=== PATIENT | male | born 1965 | race Caucasian/White ===

== ENCOUNTER 2016-03-24 23:19 | Emergency (ER) | payer OTHER ==
[~2016-03-24] VITALS: Ht 162.6 cm; Wt 82.0 kg
[~2016-03-24 23:19] MED LIST: ACET-2047; ACET650S13; BISM262O23 PO; CHLO25CA; CIPR500T4 PO; CLON-379; FOLI-49; LORA2VIA3; MULT1TAB59; OMEP20CA16 PO; ONDA4AMP; ONDA4TAB35 PO; POTA20IV; [UNRECOGNIZED DRUG - CODE]
[2016-03-24 23:26] VITALS: Ht 162.6 cm; Wt 82.0 kg
[2016-03-25] MEDS ORDERED: morphine 4 MG/ML VIAL IV STA (00:59)
[2016-03-25] MEDS ORDERED: LIDOCAINE/MYLANTA 40 ML BTL PO STA (00:59)
[2016-03-25] MEDS ORDERED: SOD CHLORIDE 0.9% 500 ML IV STA (00:59)
[2016-03-25] MEDS ORDERED: FAMOTIDINE 20 MG INJ IV STA (00:59)
[2016-03-25] MEDS ORDERED: ONDANSETRON 4 MG INJ IV STA (00:59)
[2016-03-25 01:22] LABS: BASOPHIL # 0.1 10^3/ul (0.0-0.1); BASOPHILS % 0.5 % (0.0-2.0); EOSINOPHILS # 0.2 10^3/ul (0.0-0.5); EOSINOPHILS % 1.8 % (0.0-7.0); HEMATOCRIT 48.5 % (42.0-52.0); HEMOGLOBIN 16.7 g/dl (14.0-18.0); LYMPHOCYTES # 2.6 10^3/ul (0.8-2.9); MEAN CORPUSCULAR HEMOGLOBIN 33.9 pg (29.0-33.0); MEAN CORPUSCULAR HGB CONC 34.4 g/dl (32.0-37.0); MEAN CORPUSCULAR VOLUME 98.4 fl (82.0-101.0); MEAN PLATELET VOLUME 7.9 fl (7.4-10.4); MONOCYTE # 0.7 10^3/ul (0.3-0.9); MONOCYTES % 6.7 % (0.0-11.0); NEUTROPHIL # 6.9 10^3/ul (1.6-7.5); PLATELET COUNT 251 10^3/UL (140-440); RED BLOOD COUNT 4.93 10^6/ul (4.70-6.10); RED CELL DISTRIBUTION WIDTH 13.3 % (11.5-14.5); UNCORRECTED WBC 10.4 10^3/ul (4.8-10.8); WHITE BLOOD COUNT 10.4 10^3/ul (4.8-10.8)
[2016-03-25 01:23] LABS: CONDITION 1
--- NOTE | 2016-03-25 01:29 | RADRPT ---
PROCEDURE: Chest. CLINICAL INDICATION: Chest pain. TECHNIQUE: Single frontal view of the chest was obtained. COMPARISON: None. FINDINGS: The cardiac silhouette is within normal limits. The aortic arch is unremarkable. There is no focal consolidation, vascular congestion or pleural effusion. There is no pneumothorax. IMPRESSION: No evidence for active cardiopulmonary disease. .Demetrius Frank MD, MD Date Time Electronically viewed and signed by .Demetrius Frank MD, on 03/25/2016 01:29 .T/
[2016-03-25 01:30] LABS: ALBUMIN 4.6 g/dl (3.3-4.9); CHLORIDE 101 mmol/L (97-110); POTASSIUM 3.8 mmol/L (3.5-5.1); SODIUM 144 mmol/L (135-144)
[2016-03-25 01:32] LABS: CREATININE 0.81 mg/dl (0.61-1.24)
[2016-03-25 01:33] LABS: ALANINE AMINOTRANSFERASE 49 IU/L (13-69); ALBUMIN/GLOBULIN RATIO 1.31; ALKALINE PHOSPHATASE 112 IU/L (42-121); ANION GAP 19 (8-16); ASPARTATE AMINO TRANSFERASE 73 IU/L (15-46); BILIRUBIN,INDIRECT 0.3 mg/dl (0-1.1); BILIRUBIN,TOTAL 0.3 mg/dl (0.2-1.3); BLOOD UREA NITROGEN 11 mg/dl (7-20); CALCIUM 9.3 mg/dl (8.4-10.2); CARBON DIOXIDE 28 mmol/L (21-31); GLUCOSE 110 mg/dl (70-220); TOTAL PROTEIN 8.1 g/dl (6.1-8.1)
[2016-03-25 01:43] LABS: ADD UMIC YES; URINE BILIRUBIN (Dip) NEGATIVE (NEGATIVE); URINE BLOOD (Dip) TRACE (NEGATIVE); URINE COLOR LT. YELLOW (YELLOW); URINE GLUCOSE (Dip) NEGATIVE (NEGATIVE); URINE KETONES (Dip) NEGATIVE (NEGATIVE); URINE LEUKOCYTE ESTERASE (Dip) NEGATIVE (NEGATIVE); URINE NITRITE (Dip) NEGATIVE (NEGATIVE); URINE TOTAL PROTEIN (Dip) 1+ (NEGATIVE); URINE UROBILINOGEN (Dip) 0.2 E.U./dL (0.1-1.0)
[2016-03-25 01:58] LABS: TROPONIN-I < 0.012 ng/ml (0.00-0.12)
[2016-03-25 02:43] LABS: URINE RBCS 0-2 /HPF (0)
[2016-03-25] MEDS ORDERED: RANI150T9 PO (03:07)
[2016-03-25] MEDS ORDERED: ONDA4TAB14 PO (03:07)
--- NOTE | 2016-03-25 03:07 | ERD ---
ER Documentation Chief Complaint Date/Time DATE: 03/25/16 TIME: 03:04 Chief Complaint epigastric sharp pain radiating to the back HPI This is a 50-year-old gentleman with epigastric abdominal pain radiating to his back with some mild abdominal distention. Pain is been going on for 2 days. Pain is mild to moderate intensity. It is burning in sensation. Denies any fevers or chills. Denies any other current complaints. Mild nausea but no vomiting. ROS All systems reviewed and are negative except as per history of present illness. Medications Home Meds Active Scripts Omeprazole* (Omeprazole*) 20 Mg Capsule.dr, 20 MG PO BID for 15 Days, #30 CAP 0 Refills Prov:JUSTINO SAWYER PA-C 08/06/15 Ondansetron Hcl* (Zofran* ODT) 4 mg -ODT Tab.disper, 4 MG PO DAILY Y for NAUSEA AND OR VOMITING for 5 Days, #5 TAB 0 Refills Prov:JUSTINO SAWYER PA-C 08/06/15 Bismuth Subsalicylate* (Pepto-Bismol*) 262 Mg/15 Ml Oral.susp, 30 ML PO Q6H Y for PAIN for 2 Days, #240 ML 0 Refills Prov:JUSTINO SAWYER PA-C 08/06/15 Ciprofloxacin Hcl* (Ciprofloxacin Hcl*) 500 Mg Tablet, 500 MG PO BID for 10 Days , #20 TAB 0 Refills Prov:JUSTINO SAWYER PA-C 08/06/15 Reported Medications Clonidine Hcl* (Clonidine Hcl*) 0.1 Mg Tab 06/02/10 Folic Acid* (Folic Acid*) 1 Mg Tablet 06/02/10 Thiamine Hcl (Vitamin B-1) 100 Mg Tablet 06/02/10 Multivitamins* (Multivitamins*) 1 Tab Tablet 06/02/10 Chlordiazepoxide* (Librium*) 25 Mg Capsule 06/02/10 Lorazepam* (Ativan* IV) 2 Mg/Ml Vial 06/02/10 Acetaminophen* (Acetaminophen* Supp) 650 Mg/Supp.rect Supp.rect 06/02/10 Acetaminophen* (Acetaminophen*) 650 Mg Tablet 06/02/10 Ondansetron Hcl* (Ondansetron Hcl* Inj) 4 Mg/2 Ml Ampul 06/02/10 Kcl/Dextrose/Sod Chloride* ([id number] 20 Meq/L IV Soln*) 20 Meq/L Iv.soln 06/02/10 [None] No Conflict Check 05/30/10 Allergies Allergies: Coded Allergies: No Known Allergy (Verified Allergy, Unknown, 06/07/10) PMhx/Soc Medical and Surgical Hx: pt denies Surgical Hx History of Surgery: No Anesthesia Reaction: No Hx Neurological Disorder: No Hx Respiratory Disorders: No Hx Cardiac Disorders: Yes (HTN) Hx Psychiatric Problems: No Hx Miscellaneous Medical Probl: Yes (ANXIETY) Hx Alcohol Use: No (LAST INTAKE 05/30/10) Hx Substance Use: No Hx Tobacco Use: No Smoking Status: Unknown if ever smoked Physical Exam Vitals Vital Signs Date Time Temp Pulse Resp B/P Pulse Ox O2 Delivery O2 Flow Rate FiO2 03/24/16 23:26 97.7 56 18 172/98 97 Physical Exam Const: [] Head: Atraumatic Eyes: Normal Conjunctiva ENT: Normal External Ears, Nose and Mouth. Neck: Full range of motion..~ No meningismus. Resp: Clear to auscultation bilaterally Cardio: Regular rate and rhythm, no murmurs Abd: Soft, non tender, non distended. Normal bowel sounds Skin: No petechiae or rashes Back: No midline or flank tenderness Ext: No cyanosis, or edema Neur: Awake and alert Psych: Normal Mood and Affect Result Diagram: 03/25/169903/25/16 0100 Results 24 hrs Laboratory Tests Test 03/25/16 01:00 03/25/16 01:20 Alanine Aminotransferase (ALT/SGPT) 49IU/L Albumin 4.6g/dl Albumin/Globulin Ratio 1.31 Alkaline Phosphatase 112IU/L Anion Gap 19 Aspartate Amino Transf (AST/SGOT) 73IU/L Basophils # 0.110^3/ul Basophils % 0.5% Blood Urea Nitrogen 11mg/dl Calcium Level 9.3mg/dl Carbon Dioxide Level 28mmol/L Chloride Level 101mmol/L Creatinine 0.81mg/dl Direct Bilirubin 0.00mg/dl Eosinophils # 0.210^3/ul Eosinophils % 1.8% Globulin 3.50g/dl Glucose Level 110mg/dl Hematocrit 48.5% Hemoglobin 16.7g/dl Indirect Bilirubin 0.3mg/dl Lipase 158U/L Lymphocytes # 2.610^3/ul Lymphocytes % 25.0% Mean Corpuscular Hemoglobin 33.9pg Mean Corpuscular Hemoglobin Concent 34.4g/dl Mean Corpuscular Volume 98.4fl Mean Platelet Volume 7.9fl Monocytes # 0.710^3/ul Monocytes % 6.7% Neutrophils # 6.910^3/ul Neutrophils % 66.0% Nucleated Red Blood Cells # 0.010^3/ul Nucleated Red Blood Cells % 0.0/100WBC Platelet Count 94554^3/UL Potassium Level 3.8mmol/L Red Blood Count 4.9310^6/ul Red Cell Distribution Width 13.3% Sodium Level 144mmol/L Total Bilirubin 0.3mg/dl Total Protein 8.1g/dl Troponin I < 0.012ng/ml White Blood Count 10.410^3/ul Urine Bilirubin NEGATIVE Urine Clarity CLEAR Urine Color LT. YELLOW Urine Glucose NEGATIVE% Urine Hemoglobin TRACE Urine Ketones NEGATIVE Urine Leukocyte Esterase NEGATIVE Urine Microscopic RBC 0-2/HPF Urine Microscopic WBC NONE SEEN/HPF Urine Nitrite NEGATIVE Urine Specific [place] >=1.030 Urine Total Protein 1+ Urine Urobilinogen 0.2 E.U./dL Urine pH 5.5 Current Medications Medications (Trade) Dose Ordered Sig/Tha Route PRN Reason Start Time Stop Time Status Last Admin Dose Admin Sodium Chloride (NS) 500 ml @ 500 mls/hr Q1H STAT IV 03/25/16 00:59 03/25/16 01:58 DC 03/25/16 01:13 Morphine Sulfate (morphine) 4 mg ONCE STAT IV 03/25/16 00:59 03/25/16 01:01 DC 03/25/16 01:14 Ondansetron HCl (Zofran Inj) 4 mg ONCE STAT IV 03/25/16 00:59 03/25/16 01:01 DC 03/25/16 01:13 Famotidine (Pepcid Iv) 20 mg ONCE STAT IV 03/25/16 00:59 03/25/16 01:01 DC 03/25/16 01:13 Miscellaneous Medication (Gi Cocktail (2)) 40 ml ONCE STAT PO 03/25/16 00:59 03/25/16 01:02 DC 03/25/16 01:13 Departure Diagnosis: Primary Impression: Abdominal pain Abdominal location: epigastric Qualified Code: R10.13 - Epigastric pain Condition: Stable SIDDHARTHA MYLES Mar 25, 2016 03:07
[2016-03-25 03:20] VITALS: BP 140/91; PULSE 71; RESP 18
== END 2016-03-25 03:22 | disposition home or self-care (01) ==
LOC: E/R 23:19
DX: R10.13 Epigastric pain (principal); I10 Essential (primary) hypertension; R11.0 Nausea
CPT/HCPCS: 36415; 71010; 80053; 81001; 83690; 84484; 85025; 93005; 96374; 96375; J2270; J2405; J7040; Z7502; Z7610; 81003

== ENCOUNTER 2016-03-28 02:48 | Emergency (ER) | payer OTHER ==
[~2016-03-28] VITALS: Ht 172.7 cm; Wt 83.0 kg
[~2016-03-28 02:48] MED LIST changes: +ONDA4TAB14 PO; +RANI150T9 PO
[2016-03-28 02:52] VITALS: Ht 172.7 cm; Wt 83.0 kg
[2016-03-28] MEDS ORDERED: ONDANSETRON 4 MG INJ IV STA (03:11)
[2016-03-28] MEDS ORDERED: FAMOTIDINE 20 MG INJ IV STA (03:11)
[2016-03-28] MEDS ORDERED: SOD CHLORIDE 0.9% 1,000 ML IV STA (03:11)
[2016-03-28] MEDS ORDERED: morphine 2 MG INJ IV STA (03:11)
[2016-03-28 04:11] LABS: BASOPHILS % 0.4 % (0.0-2.0); EOSINOPHILS # 0.2 10^3/ul (0.0-0.5); EOSINOPHILS % 2.9 % (0.0-7.0); HEMATOCRIT 47.5 % (42.0-52.0); HEMOGLOBIN 16.4 g/dl (14.0-18.0); LYMPHOCYTES # 1.8 10^3/ul (0.8-2.9); LYMPHOCYTES % 23.9 % (15.0-51.0); MEAN CORPUSCULAR HEMOGLOBIN 33.9 pg (29.0-33.0); MEAN CORPUSCULAR HGB CONC 34.4 g/dl (32.0-37.0); MEAN CORPUSCULAR VOLUME 98.4 fl (82.0-101.0); MEAN PLATELET VOLUME 8.4 fl (7.4-10.4); MONOCYTE # 0.6 10^3/ul (0.3-0.9); MONOCYTES % 7.9 % (0.0-11.0); NEUTROPHIL # 4.9 10^3/ul (1.6-7.5); NEUTROPHILS % 64.9 % (39.0-77.0); PLATELET COUNT 241 10^3/UL (140-440); RED BLOOD COUNT 4.83 10^6/ul (4.70-6.10); UNCORRECTED WBC 7.6 10^3/ul (4.8-10.8); WHITE BLOOD COUNT 7.6 10^3/ul (4.8-10.8)
[2016-03-28 04:12] LABS: CONDITION 1
[2016-03-28 04:14] LABS: ALBUMIN 4.4 g/dl (3.3-4.9)
[2016-03-28 04:15] LABS: POTASSIUM 3.5 mmol/L (3.5-5.1)
[2016-03-28 04:17] LABS: ALBUMIN/GLOBULIN RATIO 1.33; BILIRUBIN,INDIRECT 0.3 mg/dl (0-1.1); BILIRUBIN,TOTAL 0.3 mg/dl (0.2-1.3); CREATININE 0.87 mg/dl (0.61-1.24); TOTAL PROTEIN 7.7 g/dl (6.1-8.1)
[2016-03-28 04:18] LABS: CALCIUM 9.2 mg/dl (8.4-10.2)
[2016-03-28] MEDS ORDERED: LIDOCAINE/MYLANTA 40 ML BTL PO ONE (04:33)
--- NOTE | 2016-03-28 04:39 | RADRPT ---
PROCEDURE: Ultrasound of the abdomen. CLINICAL INDICATION: Right upper quadrant pain. TECHNIQUE: Sonographic images of the abdomen were performed. COMPARISON: No pertinent prior examinations were submitted for comparison. FINDINGS: Liver: The liver is normal in echogencity and size measuring approximately 15.4 cm. The hepatic vei ns and portal veins are patent with appropriate directional flow. No intrahepatic ductal dilatation is seen. Gallbladder: The gallbladder is mildly distended. There is diffuse gallbladder wall thickening. No pericholecystic fluid or gallstones are visualized. The common duct measures 4.2 mm. Pancreas: There is limited evaluation of the pancreatic body and tail. The visualized portions of the pancreas are unremarkable. Kidneys: The right kidney measures 10.5 cm. There is normal corticomedullary differentiation. Ther e is no evidence of renal calculus or hydronephrosis. IVC: The visualized portion of the inferior vena cava is unremarkable. Aorta: Normal in size. Free fluid: None. IMPRESSION: Distended gallbladder with gallbladder wall thickening without cholelithiasis. Findings are nonspec ific. RPTAT: HIKT .Richard Salazar MD, MD Date Time Electronically viewed and signed by .Richard Salazar MD, on 03/28/2016 04:39 .T/
--- NOTE | 2016-03-28 05:09 | RADRPT ---
PROCEDURE: XR Abdomen. CLINICAL INDICATION: Abdominal pain. TECHNIQUE: AP abdomen x-ray. COMPARISON: There are no similar studies submitted for comparison. FINDINGS: There is no evidence of bowel obstruction.There are no definite densities overlying the kidneys and ureters. IMPRESSION: No evidence of bowel obstruction. RPTAT: HIKT .Richard Salazar MD, MD Date Time Electronically viewed and signed by .Richard Salazar MD, MD on 03/28/2016 05:09 .T/
[2016-03-28] MEDS ORDERED: RANI150T9 PO (05:14)
--- NOTE | 2016-03-28 05:14 | ERD ---
ER Documentation Chief Complaint Date/Time DATE: 03/28/16 TIME: 05:11 Chief Complaint upper abd pain radaiting to back sice 5 hours ago HPI This is a 50-year-old male who presents to the emergency room for evaluation of abdominal pain for the past 6 hours. The patient does state that his abdominal pain is in the midportion of his abdomen and is described as a sharp pain with mild radiation to the back. This is not associated with any shortness of breath , nausea, or vomiting or diaphoresis. He denies any aggravating or relieving factors for his pain and came to the ER for evaluation. ROS All systems reviewed and are negative except as per history of present illness. Medications Home Meds Active Scripts Ondansetron (Ondansetron Odt) 4 Mg Tab.rapdis, 4 MG PO Q6H Y for NAUSEA AND/OR VOMITING, #10 TAB Prov:SIDDHARTHA MYLES. 03/25/16 Ranitidine Hcl* (Zantac*) 150 Mg Tablet, 150 MG PO BID Y for EPIGASTRIC PAIN, # 30 TAB Prov:SIDDHARTHA MYLES. 03/25/16 Omeprazole* (Omeprazole*) 20 Mg Capsule.dr, 20 MG PO BID for 15 Days, #30 CAP 0 Refills Prov:JUSTINO SAWYER PA-C 08/06/15 Ondansetron Hcl* (Zofran* ODT) 4 mg -ODT Tab.disper, 4 MG PO DAILY Y for NAUSEA AND OR VOMITING for 5 Days, #5 TAB 0 Refills Prov:JUSTINO SAWYER PA-C 08/06/15 Bismuth Subsalicylate* (Pepto-Bismol*) 262 Mg/15 Ml Oral.susp, 30 ML PO Q6H Y for PAIN for 2 Days, #240 ML 0 Refills Prov:JUSTINO SAWYER PA-C 08/06/15 Ciprofloxacin Hcl* (Ciprofloxacin Hcl*) 500 Mg Tablet, 500 MG PO BID for 10 Days , #20 TAB 0 Refills Prov:JUSTINO SAWYER PA-C 08/06/15 Reported Medications Clonidine Hcl* (Clonidine Hcl*) 0.1 Mg Tab 06/02/10 Folic Acid* (Folic Acid*) 1 Mg Tablet 06/02/10 Thiamine Hcl (Vitamin B-1) 100 Mg Tablet 06/02/10 Multivitamins* (Multivitamins*) 1 Tab Tablet 06/02/10 Chlordiazepoxide* (Librium*) 25 Mg Capsule 06/02/10 Lorazepam* (Ativan* IV) 2 Mg/Ml Vial 06/02/10 Acetaminophen* (Acetaminophen* Supp) 650 Mg/Supp.rect Supp.rect 06/02/10 Acetaminophen* (Acetaminophen*) 650 Mg Tablet 06/02/10 Ondansetron Hcl* (Ondansetron Hcl* Inj) 4 Mg/2 Ml Ampul 06/02/10 Kcl/Dextrose/Sod Chloride* ([id number] 20 Meq/L IV Soln*) 20 Meq/L Iv.soln 06/02/10 [None] No Conflict Check 05/30/10 Allergies Allergies: Coded Allergies: No Known Allergy (Verified Allergy, Unknown, 06/07/10) PMhx/Soc Medical and Surgical Hx: pt denies Surgical Hx History of Surgery: No Anesthesia Reaction: No Hx Neurological Disorder: No Hx Respiratory Disorders: No Hx Cardiac Disorders: Yes (HTN) Hx Psychiatric Problems: No Hx Miscellaneous Medical Probl: Yes (ANXIETY) Hx Alcohol Use: No (LAST INTAKE 05/30/10) Hx Substance Use: No Hx Tobacco Use: No Smoking Status: Former smoker Physical Exam Vitals Vital Signs Date Time Temp Pulse Resp B/P Pulse Ox O2 Delivery O2 Flow Rate FiO2 03/28/16 03:11 98.3 61 17 151/92 98 Room Air 03/28/16 02:52 98.3 60 20 170/90 98 Physical Exam INITIAL VITAL SIGNS: Reviewed by me GENERAL: The patient is well developed and appropriate for usual state of health in no apparent distress HEENT: Pupils equal, round, and reactive to light. EOMI. There is no scleral icterus. NECK: C-spine is soft and supple, there is no meningismus. There is no cervical lymphadenopathy. LUNGS: Clear to auscultation bilaterally. There are no rales, wheezes or rhonchi. HEART: Regular rate and rhythm, no murmurs, clicks, rubs or gallops. ABDOMEN: Epigastric tenderness to palpation, negative Villalobos sign, otherwise soft, non-tender, non-distended. There are bowel sounds in all four quadrants. No rebound or guarding. EXTREMITIES: There is no peripheral cyanosis or edema. No focal swelling or erythema. NEUROLOGICAL: The patient moves all four extremities with 5/5 strength. Cranial nerves II - XII are intact. Normal gait. Alert and oriented SKIN: There is no apparent rash or petechiae. HEME/LYMPHATIC: There is no evidence of excessive bruising or lymphedema. PSYCHIATRIC: The patient does not appear anxious or depressed. Result Diagram: 03/28/16 0305 03/28/16 0305 Results 24 hrs Laboratory Tests Test 03/28/16 03:05 Alanine Aminotransferase (ALT/SGPT) 41IU/L Albumin 4.4g/dl Albumin/Globulin Ratio 1.33 Alkaline Phosphatase 111IU/L Anion Gap 19 Aspartate Amino Transf (AST/SGOT) 48IU/L Basophils # 0.010^3/ul Basophils % 0.4% Blood Urea Nitrogen 13mg/dl Calcium Level 9.2mg/dl Carbon Dioxide Level 24mmol/L Chloride Level 101mmol/L Creatinine 0.87mg/dl Direct Bilirubin 0.00mg/dl Eosinophils # 0.210^3/ul Eosinophils % 2.9% Globulin 3.30g/dl Glucose Level 126mg/dl Hematocrit 47.5% Hemoglobin 16.4g/dl Indirect Bilirubin 0.3mg/dl Lipase 175U/L Lymphocytes # 1.810^3/ul Lymphocytes % 23.9% Mean Corpuscular Hemoglobin 33.9pg Mean Corpuscular Hemoglobin Concent 34.4g/dl Mean Corpuscular Volume 98.4fl Mean Platelet Volume 8.4fl Monocytes # 0.610^3/ul Monocytes % 7.9% Neutrophils # 4.910^3/ul Neutrophils % 64.9% Nucleated Red Blood Cells # 0.010^3/ul Nucleated Red Blood Cells % 0.0/100WBC Platelet Count 12546^3/UL Potassium Level 3.5mmol/L Red Blood Count 4.8310^6/ul Red Cell Distribution Width 13.0% Sodium Level 140mmol/L Total Bilirubin 0.3mg/dl Total Protein 7.7g/dl White Blood Count 7.610^3/ul Current Medications Medications (Trade) Dose Ordered Sig/Tha Route PRN Reason Start Time Stop Time Status Last Admin Dose Admin Sodium Chloride (NS) 1,000 ml @ 1,000 mls/hr Q1H STAT IV 03/28/16 03:11 03/28/16 04:10 DC 03/28/16 03:26 Morphine Sulfate (morphine) 2 mg ONCE STAT IV 03/28/16 03:11 03/28/16 03:12 DC 03/28/16 03:26 Ondansetron HCl (Zofran Inj) 4 mg ONCE STAT IV 03/28/16 03:11 03/28/16 03:12 DC 03/28/16 03:26 Famotidine (Pepcid Iv) 20 mg ONCE STAT IV 03/28/16 03:11 03/28/16 03:12 DC 03/28/16 03:26 Miscellaneous Medication (Gi Cocktail (2)) 40 ml ONCE ONCE PO 03/28/16 04:33 03/28/16 04:34 DC Procedures/MDM Ultrasound gallbladder: Distended gallbladder with gallbladder wall thickening without cholelithiasis. Findings are nonspecific. X-ray Abdomen 1V Interpreted by me: Free Air: [None] Bowel Gas: [Nonspecific] Soft Tissue: [Normal] This 50-year-old male presents to the ER for evaluation of abdominal pain. When I evaluated this patient he did have epigastric tenderness to palpation. I did obtain lab work and an ultrasound of his gallbladder. Ultrasound of the gallbladder does show gallbladder wall thickening but no signs of cholecystitis. This patient has a negative lipase. And when I talked to this patient he states that he did eat spicy food. The patient was given a GI cocktail and upon my reevaluation he states is feeling much better. I do feel his symptoms are related to gastritis as she is denying any alcohol use. This patient will be discharged home at this time with a prescription for Zantac for gastritis. Differential diagnoses entertained was broad with potential high acuity. Patient has been evaluated for appendicitis, cholecystitis, and other high risk medical and surgical causes of abdominal pain. Ultimately the patient 's evaluation is nondiagnostic. Based on the patient's lack of risk factors, as well as the patient's clinical, laboratory, and imaging data, the patient appears to be low risk for these high risk causes of abdominal pain. Departure Diagnosis: Primary Impression: Abdominal pain Additional Impression: Acute gastritis Condition: Stable BLAZE BERRY Mar 28, 2016 05:13
[2016-03-28 06:00] VITALS: BP 143/88; PULSE 67; RESP 17; TEMP 98.3
== END 2016-03-28 06:02 | disposition home or self-care (01) ==
LOC: E/R 02:48
DX: R10.13 Epigastric pain (principal); I10 Essential (primary) hypertension; K29.00 Acute gastritis without bleeding; R40.2142 Coma scale, eyes open, spontaneous, at arrival to emergency department; R40.2252 Coma scale, best verbal response, oriented, at arrival to emergency department; R40.2362 Coma scale, best motor response, obeys commands, at arrival to emergency department; Z87.891 Personal history of nicotine dependence
CPT/HCPCS: 74000; 76705; 80053; 83690; 85025; J2270; J2405; J7030; Z7610; 36415; 96374; 96375

== ENCOUNTER 2016-04-26 00:07 | Emergency (ER) | payer OTHER ==
[~2016-04-26] VITALS: Ht 177.8 cm; Wt 81.0 kg
[2016-04-26 00:22] VITALS: Ht 177.8 cm; Wt 81.0 kg
--- NOTE | 2016-04-26 03:11 | ERA ---
ER Documentation Chief Complaint Date/Time DATE: 04/26/16 TIME: 03:10 Chief Complaint upper abd pain radaiting to back x 1 day HPI The patient is a 50-year-old male, presenting to the ER because of epigastric abdominal pain radiating to the back that began about 8 PM. He has similar symptoms previously about a month ago when he had ultrasound of the abdomen that was unremarkable. The pain is 5/10, worse with vomiting mostly mucus. He denies fever, chills, neck pain, chest pain, dyspnea, lower abdominal pain, dysuria, diarrhea. He does not smoke or drink Past medical history: Gastritis Past surgical history: None ROS All systems reviewed and are negative except as per history of present illness. Medications Home Meds Active Scripts Pantoprazole* (Protonix*) 40 Mg Tablet., 40 MG PO DAILY, #20 TAB Prov:JOSÉ ANTONIO MCCULLOUGH MD 04/26/16 Ranitidine Hcl* (Zantac*) 150 Mg Tablet, 150 MG PO BID Y for EPIGASTRIC PAIN, # 30 TAB Prov:BLAZE BERRY DO 03/28/16 Ondansetron (Ondansetron Odt) 4 Mg Tab.rapdis, 4 MG PO Q6H Y for NAUSEA AND/OR VOMITING, #10 TAB Prov:SIDDHARTHA MYLES. 03/25/16 Ranitidine Hcl* (Zantac*) 150 Mg Tablet, 150 MG PO BID Y for EPIGASTRIC PAIN, # 30 TAB Prov:SIDDHARTHA MYLES. 03/25/16 Omeprazole* (Omeprazole*) 20 Mg Capsule., 20 MG PO BID for 15 Days, #30 CAP 0 Refills Prov:JUSTINO SAWYER PA-C 08/06/15 Ondansetron Hcl* (Zofran* ODT) 4 mg -ODT Tab.disper, 4 MG PO DAILY Y for NAUSEA AND OR VOMITING for 5 Days, #5 TAB 0 Refills Prov:JUSTINO SAWYER PA-C 08/06/15 Bismuth Subsalicylate* (Pepto-Bismol*) 262 Mg/15 Ml Oral.susp, 30 ML PO Q6H Y for PAIN for 2 Days, #240 ML 0 Refills Prov:JUSTINO SAWYER PA-C 08/06/15 Ciprofloxacin Hcl* (Ciprofloxacin Hcl*) 500 Mg Tablet, 500 MG PO BID for 10 Days , #20 TAB 0 Refills Prov:JUSTINO SAWYER SOFI 08/06/15 Reported Medications Clonidine Hcl* (Clonidine Hcl*) 0.1 Mg Tab 06/02/10 Folic Acid* (Folic Acid*) 1 Mg Tablet 06/02/10 Thiamine Hcl (Vitamin B-1) 100 Mg Tablet 06/02/10 Multivitamins* (Multivitamins*) 1 Tab Tablet 06/02/10 Chlordiazepoxide* (Librium*) 25 Mg Capsule 06/02/10 Lorazepam* (Ativan* IV) 2 Mg/Ml Vial 06/02/10 Acetaminophen* (Acetaminophen* Supp) 650 Mg/Supp.rect Supp.rect 06/02/10 Acetaminophen* (Acetaminophen*) 650 Mg Tablet 06/02/10 Ondansetron Hcl* (Ondansetron Hcl* Inj) 4 Mg/2 Ml Ampul 06/02/10 Kcl/Dextrose/Sod Chloride* ([id number] 20 Meq/L IV Soln*) 20 Meq/L Iv.soln 06/02/10 [None] No Conflict Check 05/30/10 Allergies Allergies: Coded Allergies: No Known Allergy (Verified Allergy, Unknown, 06/07/10) PMhx/Soc History of Surgery: No Anesthesia Reaction: No Hx Neurological Disorder: No Hx Respiratory Disorders: No Hx Cardiac Disorders: Yes (HTN) Hx Psychiatric Problems: No Hx Miscellaneous Medical Probl: Yes (ANXIETY) Hx Alcohol Use: No (LAST INTAKE 05/30/10) Hx Substance Use: No Hx Tobacco Use: No Physical Exam Vitals Vital Signs Date Time Temp Pulse Resp B/P Pulse Ox O2 Delivery O2 Flow Rate FiO2 04/26/16 05:11 98.4 57 21 122/73 99 Room Air 04/26/16 00:22 98.2 64 20 150/93 99 Physical Exam Const: No acute distress. Head: Atraumatic. Eyes: Normal Conjunctiva. ENT: Normal External Ears, Nose and Mouth. Neck: Full range of motion. No meningismus. Resp: Clear to auscultation bilaterally. Cardio: Regular rate and rhythm, no murmurs. Abd: Soft, non distended, normal bowel sounds, minimal epigastric abdominal tenderness, no right lower quadrant, right upper quadrant, CVA tenderness Skin: No petechiae or rashes. Back: No midline or flank tenderness. Ext: No cyanosis, or edema. Neur: Awake and alert. No focal deficit Psych: Normal Mood and Affect. Result Diagram: 04/26/16 0352 04/26/16 0352 Results 24 hrs Laboratory Tests Test 04/26/16 03:52 04/26/16 05:38 Alanine Aminotransferase (ALT/SGPT) 35IU/L Albumin 4.5g/dl Albumin/Globulin Ratio 1.32 Alkaline Phosphatase 112IU/L Anion Gap 17 Aspartate Amino Transf (AST/SGOT) 46IU/L Basophils # 0.110^3/ul Basophils % 0.4% Blood Urea Nitrogen 14mg/dl Calcium Level 9.7mg/dl Carbon Dioxide Level 27mmol/L Chloride Level 101mmol/L Creatinine 0.78mg/dl Direct Bilirubin 0.00mg/dl Eosinophils # 0.110^3/ul Eosinophils % 1.1% Ethyl Alcohol Level < 10.0mg/dl Globulin 3.40g/dl Glucose Level 105mg/dl Hematocrit 48.6% Hemoglobin 16.9g/dl Indirect Bilirubin 0.5mg/dl Lipase 226U/L Lymphocytes # 1.910^3/ul Lymphocytes % 15.9% Magnesium Level 1.7mg/dl Mean Corpuscular Hemoglobin 33.3pg Mean Corpuscular Hemoglobin Concent 34.8g/dl Mean Corpuscular Volume 95.7fl Mean Platelet Volume 9.9fl Monocytes # 0.810^3/ul Monocytes % 6.7% Neutrophils # 8.910^3/ul Neutrophils % 75.5% Nucleated Red Blood Cells # 0.010^3/ul Nucleated Red Blood Cells % 0.0/100WBC Platelet Count 01278^3/UL Potassium Level 3.4mmol/L Red Blood Count 5.0810^6/ul Red Cell Distribution Width 12.3% Sodium Level 142mmol/L Total Bilirubin 0.5mg/dl Total Protein 7.9g/dl White Blood Count 11.810^3/ul Bedside Urine Blood Trace-intact Bedside Urine Glucose (UA) Negative Bedside Urine Ketones (LAB) Negative Bedside Urine Leukocyte Esterase (L Negative Bedside Urine Nitrite (LAB) Negative Bedside Urine Protein (LAB) 2+ Bedside Urine pH (LAB) 7.0 Current Medications Medications (Trade) Dose Ordered Sig/Tha Route PRN Reason Start Time Stop Time Status Last Admin Dose Admin Morphine Sulfate (morphine) 4 mg ONCE ONCE IV 04/26/16 03:20 04/26/16 03:21 DC 04/26/16 04:09 Ondansetron HCl (Zofran Inj) 4 mg ONCE ONCE IV 04/26/16 03:21 04/26/16 03:22 DC 04/26/16 03:35 Pantoprazole (Protonix Iv) 40 mg ONCE ONCE IV 04/26/16 03:30 04/26/16 03:31 DC 04/26/16 03:38 Potassium Chloride (Klor-Con 20) 20 meq ONCE ONCE PO 04/26/16 05:33 04/26/16 05:40 DC 04/26/16 05:49 Procedures/MDM MEDICAL MAKING DECISION: The patient is a 50-year-old male, presenting with acute epigastric abdominal pain of unclear etiology. He was treated with morphine4 mg IV for pain, Zofran 4 mg IV for nausea, Protonix 40 mg IV and potassium chloride 20 mEq p.o. with good response. The differential diagnoses considered include but are not limited to cholelithiasis, cholecystitis, cystitis, pancreatitis, hepatitis, gastritis, peptic ulcer disease, gastric ulcer, appendicitis, diverticulitis, cholangitis, choledocholithiasis, partial small bowel obstruction. Departure Diagnosis: Primary Impression: Abdominal pain Additional Impression: Hypokalemia Condition: Good Comments He was discharged with Protonix I discussed the findings with the patient. I advised the patient to follow-up with the primary physician in about 1-2 days for referral to gastroenterology, sooner if needed and return if any concern. The patient's blood pressure was elevated (>120/80) but appears stable without evidence of hypertension emergency or urgency. The patient was counseled about the risks of hypertension and urged to pursue outpatient monitoring and therapy within a week with their primary care physician. JOSÉ ANTONIO MCCULLOUGH MD Apr 26, 2016 03:10
[2016-04-26] MEDS ORDERED: morphine 4 MG/ML VIAL IV ONE (03:20)
[2016-04-26] MEDS ORDERED: ONDANSETRON 4 MG INJ IV ONE (03:21)
[2016-04-26] MEDS ORDERED: PANTOPRAZOLE 40 MG INJ IV ONE (03:30)
[2016-04-26 04:29] LABS: ADD SCAN DIFF NO
[2016-04-26 04:37] LABS: BASOPHIL # 0.1 10^3/ul (0.0-0.1); BASOPHILS % 0.4 % (0.0-2.0); EOSINOPHILS # 0.1 10^3/ul (0.0-0.5); EOSINOPHILS % 1.1 % (0.0-7.0); HEMATOCRIT 48.6 % (42.0-52.0); HEMOGLOBIN 16.9 g/dl (14.0-18.0); LYMPHOCYTES # 1.9 10^3/ul (0.8-2.9); LYMPHOCYTES % 15.9 % (15.0-51.0); MEAN CORPUSCULAR HEMOGLOBIN 33.3 pg (29.0-33.0); MEAN CORPUSCULAR HGB CONC 34.8 g/dl (32.0-37.0); MEAN CORPUSCULAR VOLUME 95.7 fl (82.0-101.0); MEAN PLATELET VOLUME 9.9 fl (7.4-10.4); MONOCYTE # 0.8 10^3/ul (0.3-0.9); MONOCYTES % 6.7 % (0.0-11.0); NEUTROPHIL # 8.9 10^3/ul (1.6-7.5); NEUTROPHILS % 75.5 % (39.0-77.0); PLATELET COUNT 249 10^3/UL (140-415); RED BLOOD COUNT 5.08 10^6/ul (4.70-6.10); RED CELL DISTRIBUTION WIDTH 12.3 % (11.5-14.5); WHITE BLOOD COUNT 11.8 10^3/ul (4.8-10.8)
[2016-04-26 04:51] LABS: ALBUMIN 4.5 g/dl (3.3-4.9); POTASSIUM 3.4 mmol/L (3.5-5.1)
[2016-04-26 04:53] LABS: BILIRUBIN,INDIRECT 0.5 mg/dl (0-1.1); BILIRUBIN,TOTAL 0.5 mg/dl (0.2-1.3); CREATININE 0.78 mg/dl (0.61-1.24); MAGNESIUM 1.7 mg/dl (1.7-2.5)
[2016-04-26 04:54] LABS: ALBUMIN/GLOBULIN RATIO 1.32; CALCIUM 9.7 mg/dl (8.4-10.2); TOTAL PROTEIN 7.9 g/dl (6.1-8.1)
[2016-04-26 05:03] LABS: ETHANOL < 10.0 mg/dl
[2016-04-26 05:11] VITALS: BP 122/73; PULSE 57; RESP 21; TEMP 98.4
[2016-04-26] MEDS ORDERED: POTASSIUM CHLORIDE (SR) 20 MEQ TAB PO ONE (05:33)
[2016-04-26] MEDS ORDERED: PANT40TA3 PO (05:35)
[2016-04-26 05:36] LABS: URINE BLOOD (Dip) POC Trace-intact (NEGATIVE)
== END 2016-04-26 06:05 | disposition home or self-care (01) ==
LOC: E/R 00:07
DX: R10.13 Epigastric pain (principal); E87.6 Hypokalemia; R11.2 Nausea with vomiting, unspecified; I10 Essential (primary) hypertension
CPT/HCPCS: 36415; 80053; 80306; 81003; 83690; 83735; 85025; 96374; 96375; C9113; J2270; J2405; Z7502; Z7610

== ENCOUNTER 2017-02-13 21:55 | Emergency (ER) | payer OTHER ==
[~2017-02-13] VITALS: Ht 167.6 cm; Wt 81.9 kg
[~2017-02-13 21:55] MED LIST changes: +PANT40TA3 PO
[2017-02-13 22:17] VITALS: Ht 167.6 cm; Wt 81.9 kg
--- NOTE | 2017-02-13 22:53 | ERD ---
ER Documentation Chief Complaint Chief Complaint nose bleeding x 4 days, on and off HPI 51-year-old male presents with intermittent epistaxis that occurs to the right naris for the past 4 days. Patient states that they last for approximately 30 minutes, the last one was approximately 2 hours long. He denies any trauma, dizziness, chest pain, shortness of breath. He denies fevers or chills. Patient states that this was treated 7 years ago with what appears to be likely cautery treatment. He has a history of alcohol abuse but he states that the last time he drank alcohol was 5 years ago. ROS All systems reviewed and are negative except as per history of present illness. Medications Home Meds Active Scripts Amoxicillin/Potassium Clav (Amox-Clav 875-125 mg Tablet) 875-125 mg Tab, 1 TAB PO BID for 7 Days, #14 TAB Prov:FLORENCE TOMAS PA-C 02/14/17 Pantoprazole* (Protonix*) 40 Mg Tablet., 40 MG PO DAILY, #20 TAB Prov:JOSÉ ANTONIO MCCULLOUGH MD 04/26/16 Ranitidine Hcl* (Zantac*) 150 Mg Tablet, 150 MG PO BID Y for EPIGASTRIC PAIN, # 30 TAB Prov:BLAZE BERRY DO 03/28/16 Ondansetron (Ondansetron Odt) 4 Mg Tab.rapdis, 4 MG PO Q6H Y for NAUSEA AND/OR VOMITING, #10 TAB Prov:SIDDHARTHA MYLES 03/25/16 Ranitidine Hcl* (Zantac*) 150 Mg Tablet, 150 MG PO BID Y for EPIGASTRIC PAIN, # 30 TAB Prov:SIDDHARTHA MYLES 03/25/16 Omeprazole* (Omeprazole*) 20 Mg Capsule., 20 MG PO BID for 15 Days, #30 CAP 0 Refills Prov:JUSTINO SAWYER PA-C 08/06/15 Ondansetron Hcl* (Zofran* ODT) 4 mg -ODT Tab.disper, 4 MG PO DAILY Y for NAUSEA AND OR VOMITING for 5 Days, #5 TAB 0 Refills Prov:JUSTINO SAWYER PA-C 08/06/15 Bismuth Subsalicylate* (Pepto-Bismol*) 262 Mg/15 Ml Oral.susp, 30 ML PO Q6H Y for PAIN for 2 Days, #240 ML 0 Refills Prov:JUSTINO SAWYER PA-C 08/06/15 Ciprofloxacin Hcl* (Ciprofloxacin Hcl*) 500 Mg Tablet, 500 MG PO BID for 10 Days , #20 TAB 0 Refills Prov:JUSTINO SAWYER PA-C 08/06/15 Reported Medications Clonidine Hcl* (Clonidine Hcl*) 0.1 Mg Tab 06/02/10 Folic Acid* (Folic Acid*) 1 Mg Tablet 06/02/10 Thiamine Hcl (Vitamin B-1) 100 Mg Tablet 06/02/10 Multivitamins* (Multivitamins*) 1 Tab Tablet 06/02/10 Chlordiazepoxide* (Librium*) 25 Mg Capsule 06/02/10 Lorazepam* (Ativan* IV) 2 Mg/Ml Vial 06/02/10 Acetaminophen* (Acetaminophen* Supp) 650 Mg/Supp.rect Supp.rect 06/02/10 Acetaminophen* (Acetaminophen*) 650 Mg Tablet 06/02/10 Ondansetron Hcl* (Ondansetron Hcl* Inj) 4 Mg/2 Ml Ampul 06/02/10 Kcl/Dextrose/Sod Chloride* (S8DD-Ego 20 Meq/L IV Soln*) 20 Meq/L Iv.soln 06/02/10 [None] No Conflict Check 05/30/10 Allergies Allergies: Coded Allergies: No Known Allergy (Verified Allergy, Unknown, 06/07/10) PMhx/Soc History of Surgery: No Anesthesia Reaction: No Hx Neurological Disorder: No Hx Respiratory Disorders: No Hx Cardiac Disorders: Yes (HTN) Hx Psychiatric Problems: No Hx Miscellaneous Medical Probl: Yes (ANXIETY) Hx Alcohol Use: No (LAST INTAKE 05/30/10) Hx Substance Use: No Hx Tobacco Use: No Smoking Status: Never smoker Physical Exam Vitals Vital Signs Date Time Temp Pulse Resp B/P Pulse Ox O2 Delivery O2 Flow Rate FiO2 02/13/17 22:17 98.3 65 20 140/95 100 Physical Exam General: Well-developed, well-nourished. The patient appears in no acute distress. HEENT: Head is normocephalic, atraumatic. No scleral icterus. There is no active bleeding, no septal hematoma. No crepitus. Atraumatic. Neck: Supple. Nontender. Lungs: Clear to auscultation. Normal air movement. Heart: Regular rate and rhythm. S1 and S2 are normal. No murmurs, gallops, or rubs. Abdomen: Nondistended. Extremities: No clubbing or cyanosis. Moving extremities x 4. No weakness. Neurologic: Alert and oriented 3. No focal deficits. Normal speech and gait. Skin: Normal turgor. No rash or lesions. Results 24 hrs Current Medications Medications (Trade) Dose Ordered Sig/Tha Route PRN Reason Start Time Stop Time Status Last Admin Dose Admin Oxymetazoline HCl (Afrin [place]) 2 spray ONCE ONCE NASAL 02/14/17 00:30 02/14/17 00:31 DC Procedures/MDM ED COURSE: Rhino Rocket was placed to the right naris. While the patient was waiting, he reports that he felt bleeding in the back of his throat, and shows bloody sputum. The Rhino Rocket was removed, and then an anterior posterior packing was placed with Afrin. There is no active bleeding at this time but due to his intermittent bleeding for 4 days patient will be discharged with the anterior posterior packing and will be advised to follow-up with ENT. MEDICAL DECISION MAKIN-year-old male complains of intermittent epistaxis for 4 days to the right naris, it is atraumatic without septal hematoma. There is no active bleeding but the patient states that he has been bleeding for 4 days and has been bleeding for the last 2 hours as well. Due to this a Rhino Rocket was placed, the patient was advised to recheck in 2 days for the removal. Patient's blood pressure was elevated (>120/80) but appears stable without evidence of hypertension emergency or urgency. The patient was counseled about the risks of hypertension and urged to pursue outpatient monitoring and therapy within a week with their primary care physician. Departure Diagnosis: Primary Impression: Epistaxis Condition: Good Patient Instructions: Epistaxis (Adult), Nasal Packing, Anterior (Removable) Additional Instructions: Llame al doctor MAANA y mikal dulce maria DONTE PARA DENTRO DE 2 TYSON.Dgale a la secretaria que nosotros le instruimos hacer esta donte.Avise o llame si hilario condicin se empeora antes de la donte. Regresa aqui si peor o no mejor. FLORENCE TOMAS PA-C Feb 13, 2017 22:53
[2017-02-14] MEDS ORDERED: OXYMETAZOLINE 0.05% 15 ML NAS SPRAY NASAL ONE (00:30)
[2017-02-14] MEDS ORDERED: AMOX1TAB10 PO (00:36)
== END 2017-02-14 00:56 | disposition home or self-care (01) ==
LOC: FTE 21:55
DX: R04.0 Epistaxis (principal); I10 Essential (primary) hypertension

== ENCOUNTER 2017-02-14 18:48 | Emergency (ER) | END 2017-02-15 04:27 | disposition home or self-care (01) ==

== ENCOUNTER 2017-02-17 20:59 | Emergency (ER) | END 2017-02-17 23:12 | disposition home or self-care (01) ==